=== PATIENT | female | born 1955 | race Caucasian/White ===

== ENCOUNTER 2022-05-06 19:27 | Emergency (ER) | payer MEDICARE ==
[2022-05-06] VITALS (8 sets, daily range): BP systolic 141–176; BP diastolic 66–93
[~2022-05-06] VITALS: Ht 165.1 cm; Wt 81.0 kg
[2022-05-06] MEDS ORDERED: LEVOTHYROXIN50 MCG PO (20:04)
[2022-05-06] MEDS ORDERED: EQ OMEPRAZOLE20 MG PO (20:04)
[2022-05-06] MEDS ORDERED: DIPROLENE15 G1 EX (20:05)
[2022-05-06] MEDS ORDERED: VICTOZA18 MG/3 ML SC (20:06)
[2022-05-06] MEDS ORDERED: CRESTOR40 MG PO (20:08)
[2022-05-06] MEDS ORDERED: LOPRESSOR25 MG PO (20:08)
[2022-05-06] MEDS ORDERED: ASPIRIN325 MG PO (20:09)
[2022-05-06] MEDS ORDERED: VITAMIN D35000 UNI1 PO (20:10)
[2022-05-06] MEDS ORDERED: NITROGLYCERIN0.4 MG SL (20:10)
[2022-05-06] MEDS ORDERED: EPINEPHRIN0.3 MG/0.3 SC (20:12)
[2022-05-06] MEDS ORDERED: ALPRAZOLAM0.5 MG PO (20:13)
[2022-05-06] MEDS ORDERED: NORVASC5 M1 PO (20:14)
[2022-05-06] MEDS ORDERED: METFORMIN HCL500 M2 PO (20:14)
[2022-05-06] MEDS ORDERED: CANDESARTAN CIL32 MG PO (20:16)
[2022-05-06] MEDS ORDERED: ISOSORB MONO20 MG PO (20:18)
[2022-05-06] MEDS ORDERED: ARNUITY EL50 MCG/ACT IN (20:18)
[2022-05-06 20:37] LABS: BASO% 0.4 % (0-3); EOS% 2.7 % (0-8); HEMATOCRIT 38.1 % (37.0-47.0); HEMOGLOBIN 13.3 g/dl (12.0-16.0); IMMATURE GRANULOCYTES 0.4 % (0.0-5.0); LYMPH% 41.6 % (15-41); MEAN CELL VOLUME 90.9 fL CALC (80.0-100.0); MEAN CORPUSCULAR HGB 31.7 pG CALC (26.0-32.0); MEAN CORPUSCULAR HGB CONC 34.9 g/dL CAL (32.0-36.0); MONO% 5.7 % (2-13); NEUT# 2.78 thou/uL (2.00-7.15); NEUT% 49.2 % (42-76); RED BLOOD COUNT 4.19 mill/uL (4.20-5.60); RED CELL DISTRI WIDTH 12.8 % (11.5-15.5)
[2022-05-06 20:43] LABS: ALBUMIN 5.1 g/dL (3.2-5.0); ALKALINE PHOSPHATASE 78 u/l (38-126); ANION GAP 18 (6-22 (CALC)); BILIRUBIN, TOTAL 0.8 mg/dL (0.02-1.3); BUN 15 mg/dL (8-23); BUN/CREATININE RATIO 19 (12-20 (CALC)); CARBON DIOXIDE 20 mmol/l (22-30); CHLORIDE 109 mmol/l (95-108); CREATININE 0.8 mg/dL (0.5-1.0); GFR FOR AFR.AMER. > 60 ML/MIN (>=60 (CALC)); GFR OTHER RACES > 60 ML/MIN (>=60 (CALC)); POTASSIUM 3.9 mmol/l (3.5-5.1); SGOT/AST 58 u/l (9-36); SODIUM 142 mmol/l (137-146); TOTAL PROTEIN 7.9 g/dL (6.3-8.2)
[2022-05-06] MEDS ORDERED: ULTRAM50 MG PO (22:02)
[2022-05-06] MEDS ORDERED: ROBITUSSIN AC10 ML PO (22:02)
[2022-05-06] MEDS ORDERED: DIPHENHYDRAM50 M2 PO (22:02)
[2022-05-06] MEDS ORDERED: NEOSPORIN PLUS28 GM TOP (22:02)
== END 2022-05-06 22:16 | disposition home or self-care (01) ==
LOC: ED 19:27
PROVIDERS: Emergency Medicine
DX: T78.49XA Other allergy, initial encounter (principal); I10 Essential (primary) hypertension; E11.9 Type 2 diabetes mellitus without complications; X58.XXXA Exposure to other specified factors, initial encounter; Z79.84 Long term (current) use of oral hypoglycemic drugs; Z20.822 Contact with and (suspected) exposure to COVID-19

== ENCOUNTER → 2022-05-06 | Emergency (ER) | payer SELFPAY ==
[~2022-05-06] MED LIST: ALPRAZOLAM0.5 MG PO; ARNUITY EL50 MCG/ACT IN; ASPIRIN325 MG PO; CANDESARTAN CIL32 MG PO; CRESTOR40 MG PO; DIPHENHYDRAM50 M2 PO; DIPROLENE15 G1 EX; EPINEPHRIN0.3 MG/0.3 SC; EQ OMEPRAZOLE20 MG PO; ISOSORB MONO20 MG PO; LEVOTHYROXIN50 MCG PO; LOPRESSOR25 MG PO; METFORMIN HCL500 M2 PO; NEOSPORIN PLUS28 GM TOP; NITROGLYCERIN0.4 MG SL; NORVASC5 M1 PO; ROBITUSSIN AC10 ML PO; ULTRAM50 MG PO; VICTOZA18 MG/3 ML SC; VITAMIN D35000 UNI1 PO
== END | disposition home or self-care (01) | DRG 951 ==
LOC: ED 19:03 → LWOBS 19:08
DX: Z53.21 Procedure and treatment not carried out due to patient leaving prior to being seen by health care provider (principal)